=== PATIENT | male | born 1970 | race Caucasian/White ===

== ENCOUNTER 2019-11-05 16:59 | Emergency (ER) | payer OTHER ==
[~2019-11-05] VITALS: Ht 182.9 cm; Wt 113.4 kg
[~2019-11-05 16:59] MED LIST: KEFLEX500 MG PO; NORCO 5-325 TA1 EACH PO; PERCOCET 5-3251 EACH PO
[2019-11-05] MEDS ORDERED: FLEXERIL PO (19:14)
[2019-11-05] MEDS ORDERED: NORCO 5-325 TA1 EAC2 PO (19:14)
[2019-11-05] MEDS ORDERED: MEDROLDOSEPACK PO (19:15)
[2019-11-05 19:38] VITALS: BP 124/70
== END 2019-11-05 19:48 | disposition home or self-care (01) ==
LOC: M.ERS 16:59
DX: S89.82XA Other specified injuries of left lower leg, initial encounter (principal); M25.551 Pain in right hip; M25.552 Pain in left hip; M54.5 Low back pain; W18.39XA Other fall on same level, initial encounter; Y93.89 Activity, other specified; Y92.89 Other specified places as the place of occurrence of the external cause; Y99.8 Other external cause status